=== PATIENT | female | born 1965 | race Hispanic/Latino ===

== ENCOUNTER 2025-04-30 06:28 | Day surgery (SDC) | payer MEDICARE ==
[2025-04-30] VITALS (11 sets, daily range): BP systolic 107–159; BP diastolic 54–89; PULSE 69–85; RESP 14–18; TEMP 97.1–97.9
[~2025-04-30] VITALS: Ht 170.2 cm; Wt 72.6 kg
[2025-04-30] MEDS: 0.9%NACL 1000ML 1,000 ML IV ONE (07:23)
--- NOTE | 2025-04-30 09:52 | NUR ---
POST COLONOSCOPY. PATIENT INSTRUCTED TO STAY [address] BIGGS. PATIENT REFUSED TO STAY AN EXTRA 30 MINUTES. PATIENT DISCHARGE WITH FRIEND/PLUGGER WORKER JOSELYN. PATIENT STATED. " LONG MY EYES OPEN I AM GOING HOME AND I FEEL FINE".
== END 2025-04-30 09:55 | disposition home or self-care (01) ==
LOC: ENDO 06:28 → DAH 06:28 → ENDO 09:55
PROVIDERS: ATTEND Surgery
DX: Z12.11 Encounter for screening for malignant neoplasm of colon (principal); K64.4 Residual hemorrhoidal skin tags; K64.2 Third degree hemorrhoids; I10 Essential (primary) hypertension; F41.9 Anxiety disorder, unspecified; E78.00 Pure hypercholesterolemia, unspecified; F32.A Depression, unspecified; M19.90 Unspecified osteoarthritis, unspecified site; Z98.51 Tubal ligation status; Z88.0 Allergy status to penicillin; Z88.1 Allergy status to other antibiotic agents; Z88.5 Allergy status to narcotic agent; Z79.890 Hormone replacement therapy; Z98.890 Other specified postprocedural states
CPT/HCPCS: J7030; J2704; J2371; A4620; G0121; A4215; 45378; J3490